=== PATIENT | female | born 1940 | race Caucasian/White ===

== ENCOUNTER 2017-01-30 18:53 | Emergency (ER) | payer MEDICARE, MEDICAID ==
[~2017-01-30] VITALS: Ht 154.9 cm; Wt 54.3 kg
[~2017-01-30 18:53] MED LIST: ANAS1TAB PO; FLUO10CA13 PO; LISI-170 PO; TIZA2CAP PO
[2017-01-30] MEDS ORDERED: ONDANSETRON 2MG/ML, 2ML IVPush ONE (19:30)
[2017-01-30] MEDS ORDERED: SODIUM CHLORIDE FLUSH 10ML SYR IVF ONE (19:30)
[2017-01-30] MEDS ORDERED: SODIUM CHLORIDE 0.9% 1,000ML IVBOLUS ONE (19:30)
[2017-01-30] MEDS ORDERED: MORPHINE SULFATE 4 MG/ML, 1ML IVPush PRN (19:30)
[2017-01-30] MEDS ORDERED: ONDANSETRON 2MG/ML, 2ML ONE (20:11)
[2017-01-30] MEDS ORDERED: MORPHINE SULFATE 4 MG/ML, 1ML ONE (20:11)
[2017-01-30 21:24] LABS: ASPARTATE AMINO TRANSFERASE 13 U/L (15-37); BLOOD UREA NITROGEN 14 mg/dL (7-18)
[2017-01-30] MEDS ORDERED: OMNIPAQUE 350 MG/ML, 100ML BOTTLE ONE (21:45)
[2017-01-30 22:30] VITALS: BP 107/49
== END 2017-01-30 23:01 | disposition home or self-care (01) ==
LOC: ED 19:42
DX: K57.30 Diverticulosis of large intestine without perforation or abscess without bleeding (principal); R10.31 Right lower quadrant pain; R10.32 Left lower quadrant pain; Z90.49 Acquired absence of other specified parts of digestive tract; Z85.3 Personal history of malignant neoplasm of breast; Z88.0 Allergy status to penicillin; Z95.0 Presence of cardiac pacemaker
CPT/HCPCS: 36415; 74020; 74177; 80053; 81001; 83690; 85025; 87086; 93005; 96361; 96374; 96375; 99285; J2405; J7030; Q9967

== ENCOUNTER → 2018-03-21 | Outpatient (CLI) | payer MEDICARE, MEDICAID ==
[2018-03-21 10:06] LABS: ALBUMIN 3.1 g/dL (3.4-5.0); ANION GAP 7 mmol/L (5-15); CALCIUM 8.7 mg/dL (8.5-10.1); CHLORIDE 112 mmol/L (98-107)
[2018-03-21 10:17] LABS: ALANINE AMINOTRANSFERASE 14 U/L (12-78); ALKALINE PHOSPHATASE 74 U/L (45-117); BILIRUBIN,TOTAL 0.3 mg/dL (0.2-1.0); CHOLESTEROL, TOTAL 194 mg/dL (140-239); CREATININE 0.83 mg/dL (0.55-1.02); HDL CHOL % 25 % (28-40); HDL CHOLESTEROL (DIRECT) 49 mg/dL (40-60); LDL CHOLESTEROL,CALCULATED 116 mg/dL (54-169); LDL/HDL RATIO 2.4 (0.5-3.0); TOTAL PROTEIN 6.7 g/dL (6.4-8.2); TRIGLYCERIDES 144 mg/dL (50-200); VLDL CHOLESTEROL 29 mg/dL (0-25)
== END | disposition home or self-care (01) ==
LOC: LAB 09:32
PROVIDERS: ATTEND Internal Medicine Cardiovascular Disease
DX: I10 Essential (primary) hypertension (principal); E78.5 Hyperlipidemia, unspecified; R00.2 Palpitations
CPT/HCPCS: 36415; 80053; 80061; 84443

== ENCOUNTER → 2018-06-12 | Outpatient (CLI) | payer MEDICARE, MEDICAID | END | disposition home or self-care (01) | LOC: CFH 09:33 | PROVIDERS: ATTEND Family Medicine | DX: Z12.31 Encounter for screening mammogram for malignant neoplasm of breast (principal); Z13.820 Encounter for screening for osteoporosis; M85.88 Other specified disorders of bone density and structure, other site; Z85.3 Personal history of malignant neoplasm of breast | CPT/HCPCS: 77080; 77067 ==

== ENCOUNTER 2018-10-10 00:14 | Inpatient (IN) | payer MEDICARE, MEDICAID ==
[~2018-10-10] VITALS: Ht 154.9 cm; Wt 50.9 kg
[2018-10-10] MEDS ORDERED: MORPHINE SULFATE 4 MG/ML, 1ML ONE (00:50)
[2018-10-10 00:56] LABS: MEAN CORPUSCULAR HEMOGLOBIN 33.2 pg (27.0-34.8); MEAN CORPUSCULAR HGB CONC 33.6 g/dL (32.4-35.8); MEAN CORPUSCULAR VOLUME 98.9 fL (80-100); MEAN PLATELET VOLUME 7.1 fL (7.4-10.4); PLATELET COUNT 317 x10^3/uL (130-400); RED BLOOD COUNT 3.89 x10^6/uL (3.82-5.3)
[2018-10-10] MEDS ORDERED: SODIUM CHLORIDE FLUSH 10ML SYR IVF ONE (01:00)
[2018-10-10] MEDS ORDERED: MORPHINE SULFATE 4 MG/ML, 1ML IVPush PRN (01:00)
[2018-10-10 01:02] LABS: INTERNATIONAL NORMALIZED RATIO 0.99 (0.93-1.1); PROTHROMBIN TIME 10.5 Seconds (9.6-11.5)
[2018-10-10 01:03] LABS: ALANINE AMINOTRANSFERASE 13 U/L (12-78); ALBUMIN 3.4 g/dL (3.4-5.0); ANION GAP 11 mmol/L (5-15); CALCIUM 8.8 mg/dL (8.5-10.1); CHLORIDE 109 mmol/L (98-107); CREATININE 0.95 mg/dL (0.55-1.02)
[2018-10-10 01:08] LABS: ALKALINE PHOSPHATASE 89 U/L (45-117); BILIRUBIN,TOTAL 0.6 mg/dL (0.2-1.0); TOTAL PROTEIN 7.3 g/dL (6.4-8.2); TROPONIN I < 0.015 ng/mL (0.000-0.045)
[2018-10-10 01:21] LABS: BASOPHILS # (AUTO) 0.04 x10^3/uL (0-0.1); BASOPHILS % (AUTO) 0 % (0-1); EOSINOPHILS # (AUTO) 0.03 x10^3/uL (0-0.4); EOSINOPHILS % (AUTO) 0 % (1-7); LYMPHOCYTES # (AUTO) 1.45 x10^3/uL (1-3.4); LYMPHOCYTES % (AUTO) 11 % (22-44); MD SCAN; MONOCYTES # (AUTO) 1.67 x10^3/uL (0.2-0.8); MONOCYTES % (AUTO) 13 % (2-9); NEUTROPHILS # (AUTO) 9.59 x10^3/uL (1.8-6.8); NEUTROPHILS % (AUTO) 75 % (42-75)
[2018-10-10 03:41] VITALS: BP 101/61
[2018-10-10] MEDS ORDERED: BACLOFEN 10 MG TABLET PO PRN (04:00)
[2018-10-10] MEDS ORDERED: ACETAMINOPHEN 325 MG TABLET PO PRN (04:00)
[2018-10-10] MEDS ORDERED: KETOROLAC 30 MG/1 ML IVPush SCH (04:15)
[2018-10-10] MEDS: HEPARIN 5,000 UNITS/ML, 1ML SQ SCH ×3 (04:44→20:41)
[2018-10-10] MEDS: morphine SULFATE 10 MG/ML, 1ML IVPush PRN ×3 (05:39→14:51)
[2018-10-10] MEDS: FAMOTIDINE 20 MG TABLET PO SCH ×2 (07:53→20:44)
[2018-10-10] MEDS: ANASTROZOLE 1 MG TABLET HOMEMEDPO SCH (07:53)
[2018-10-10] MEDS: FLUOXETINE 10 MG CAP PO SCH (07:53)
[2018-10-10 07:55] VITALS: BP 94/57
[2018-10-10] MEDS ORDERED: LIDODERM 5% PATCH TD ONE ×2 (10:30→14:48)
[2018-10-10 11:46] LABS: BASOPHILS # (AUTO) 0.07 x10^3/uL (0-0.1); BASOPHILS % (AUTO) 1 % (0-1); EOSINOPHILS # (AUTO) 0.03 x10^3/uL (0-0.4); EOSINOPHILS % (AUTO) 0 % (1-7); LYMPHOCYTES # (AUTO) 0.74 x10^3/uL (1-3.4); LYMPHOCYTES % (AUTO) 8 % (22-44); MD NO; MEAN CORPUSCULAR HEMOGLOBIN 33.6 pg (27.0-34.8); MEAN CORPUSCULAR HGB CONC 33.8 g/dL (32.4-35.8); MEAN CORPUSCULAR VOLUME 99.5 fL (80-100); MEAN PLATELET VOLUME 6.8 fL (7.4-10.4); MONOCYTES # (AUTO) 1.06 x10^3/uL (0.2-0.8); MONOCYTES % (AUTO) 12 % (2-9); NEUTROPHILS # (AUTO) 7.16 x10^3/uL (1.8-6.8); NEUTROPHILS % (AUTO) 79 % (42-75); PLATELET COUNT 285 x10^3/uL (130-400); RED BLOOD COUNT 3.32 x10^6/uL (3.82-5.3); RED CELL DISTRIBUTION WIDTH 14.2 % (9.6-15.2)
[2018-10-10] MEDS ORDERED: LIDOCAINE 1%, 10ML INFIL ONE (12:30)
[2018-10-10 12:52] LABS: HCT (SEDRATE) 33.1 % (34.6-47.8)
[2018-10-10 14:00] VITALS: BP 108/67
[2018-10-10] MEDS: CYCLOBENZAPRINE 10 MG TABLET PO SCH ×3 (14:52→20:41)
[2018-10-10] MEDS: PANTOPROZOLE 40MG TABLET PO SCH (14:52)
[2018-10-10 15:22] LABS: MICROSCOPIC AUTO
[2018-10-10 15:23] LABS: CULTURE INDICATED? YES
[2018-10-10 17:27] LABS: C-REACTIVE PROTEIN, QUANT 7.3 mg/dL (0.02-0.49); THYROID STIMULATING HORMONE 3.56 mIU/L (0.358-3.740)
[2018-10-10 19:25] VITALS: BP 94/54
[2018-10-11 04:00] VITALS: BP 118/71
[2018-10-11] MEDS: HEPARIN 5,000 UNITS/ML, 1ML SQ SCH ×4 (04:00→20:55)
[2018-10-11] MEDS: morphine SULFATE 10 MG/ML, 1ML IVPush PRN ×2 (04:49→09:47)
[2018-10-11] MEDS ORDERED: OXYcodone/APAP 10/325MG TABLET PO PRN (06:30)
[2018-10-11 07:05] VITALS: BP 127/67
[2018-10-11] MEDS: FLUOXETINE 10 MG CAP PO SCH (08:26)
[2018-10-11] MEDS: CYCLOBENZAPRINE 10 MG TABLET PO SCH ×3 (08:26→20:51)
[2018-10-11] MEDS: ANASTROZOLE 1 MG TABLET HOMEMEDPO SCH (08:27)
[2018-10-11] MEDS: FAMOTIDINE 20 MG TABLET PO SCH ×2 (08:27→20:50)
[2018-10-11] MEDS: PANTOPROZOLE 40MG TABLET PO SCH (12:28)
[2018-10-11] MEDS ORDERED: OXYcodone/APAP 5/325MG TABLET PO PRN (13:30)
[2018-10-11 13:50] VITALS: BP 97/54
[2018-10-11] MEDS ORDERED: CEFTRIAXONE PMX 1GM/50ML 50 ML IV SCH (18:00)
[2018-10-11] MEDS ORDERED: HALOPERIDOL 5 MG/ML IV ONE (18:00)
[2018-10-11 18:25] VITALS: BP 123/67
[2018-10-11 19:51] VITALS: BP 119/73
[2018-10-12 03:25] VITALS: BP 109/58
[2018-10-12 04:57] LABS: BASOPHILS # (AUTO) 0.01 x10^3/uL (0-0.1); BASOPHILS % (AUTO) 0 % (0-1); EOSINOPHILS # (AUTO) 0.02 x10^3/uL (0-0.4); EOSINOPHILS % (AUTO) 0 % (1-7); LYMPHOCYTES # (AUTO) 0.97 x10^3/uL (1-3.4); LYMPHOCYTES % (AUTO) 10 % (22-44); MD NO; MEAN CORPUSCULAR HEMOGLOBIN 33.6 pg (27.0-34.8); MEAN CORPUSCULAR HGB CONC 33.7 g/dL (32.4-35.8); MEAN CORPUSCULAR VOLUME 99.6 fL (80-100); MEAN PLATELET VOLUME 7.4 fL (7.4-10.4); MONOCYTES # (AUTO) 0.91 x10^3/uL (0.2-0.8); MONOCYTES % (AUTO) 9 % (2-9); NEUTROPHILS # (AUTO) 7.85 x10^3/uL (1.8-6.8); NEUTROPHILS % (AUTO) 80 % (42-75); PLATELET COUNT 265 x10^3/uL (130-400); RED BLOOD COUNT 3.07 x10^6/uL (3.82-5.3); RED CELL DISTRIBUTION WIDTH 13.9 % (9.6-15.2)
[2018-10-12] MEDS: HEPARIN 5,000 UNITS/ML, 1ML SQ SCH ×2 (04:58→13:00)
[2018-10-12] MEDS ORDERED: CALCIUM CARBONATE 500 MG TABLET PO SCH (09:00)
[2018-10-12] MEDS ORDERED: CHOLECALCIFEROL 400 UNITS TABLET PO SCH (09:00)
[2018-10-12] MEDS: CYCLOBENZAPRINE 10 MG TABLET PO SCH (09:49)
[2018-10-12] MEDS: FAMOTIDINE 20 MG TABLET PO SCH (09:49)
[2018-10-12] MEDS: ANASTROZOLE 1 MG TABLET HOMEMEDPO SCH (10:04)
[2018-10-12] MEDS: FLUOXETINE 10 MG CAP PO SCH (10:17)
[2018-10-12 11:39] VITALS: BP 110/62
[2018-10-12] MEDS: PANTOPROZOLE 40MG TABLET PO SCH (11:54)
[2018-10-12] MEDS ORDERED: SULF1TAB24 PO (14:39)
[2018-10-12] MEDS ORDERED: PRED20TA PO (14:39)
[2018-10-12] MEDS ORDERED: CYCL-259 PO (15:08)
[2018-10-14 18:45] LABS: ANA SCREEN NEGATIVE (Negative)
== END 2018-10-12 16:24 | disposition home or self-care (01) | DRG 546 ==
LOC: ED 00:30 → EDIP 02:45 → 3NW 03:32
PROVIDERS: ADMIT Family Medicine; ATTEND Family Medicine
DX: M35.3 Polymyalgia rheumatica (principal); L03.90 Cellulitis, unspecified; M47.812 Spondylosis without myelopathy or radiculopathy, cervical region; F32.9 Major depressive disorder, single episode, unspecified; I89.0 Lymphedema, not elsewhere classified; R82.71 Bacteriuria; Z90.49 Acquired absence of other specified parts of digestive tract; Z90.10 Acquired absence of unspecified breast and nipple; Z88.0 Allergy status to penicillin; Z85.3 Personal history of malignant neoplasm of breast; Z88.1 Allergy status to other antibiotic agents; Z95.0 Presence of cardiac pacemaker; Z82.61 Family history of arthritis; Z79.899 Other long term (current) drug therapy
CPT/HCPCS: 36415; 70450; 71045; 72125; 80053; 81001; 84443; 84484; 85025; 85610; 85651; 85730; 86038; 86140; 86430; 87086; 93005; 96374; 99285; G0378; J0696; J1644; J1630; J2270; J7512

== ENCOUNTER 2020-05-25 17:53 | Emergency (ER) | payer MEDICARE, MEDICAID ==
[~2020-05-25] VITALS: Ht 152.4 cm; Wt 50.7 kg
[~2020-05-25 17:53] MED LIST changes: +CYCL-259 PO; +PRED20TA PO; +SULF1TAB24 PO
[2020-05-25] MEDS ORDERED: SODIUM CHLORIDE FLUSH 10ML SYR IVF ONE (18:30)
[2020-05-25 19:09] LABS: MICROSCOPIC INDICATED
[2020-05-25 19:17] LABS: BASOPHILS # (AUTO) 0.03 x10^3/uL (0-0.1); BASOPHILS % (AUTO) 0 % (0-1); EOSINOPHILS # (AUTO) 0.13 x10^3/uL (0-0.4); EOSINOPHILS % (AUTO) 2 % (1-7); LYMPHOCYTES # (AUTO) 1.11 x10^3/uL (1-3.4); LYMPHOCYTES % (AUTO) 13 % (22-44); MD NO; MEAN CORPUSCULAR HEMOGLOBIN 33.6 pg (27.0-34.8); MEAN CORPUSCULAR HGB CONC 33.5 g/dL (32.4-35.8); MEAN CORPUSCULAR VOLUME 100.3 fL (80-100); MONOCYTES # (AUTO) 0.75 x10^3/uL (0.2-0.8); MONOCYTES % (AUTO) 9 % (2-9); NEUTROPHILS # (AUTO) 6.68 x10^3/uL (1.8-6.8); NEUTROPHILS % (AUTO) 77 % (42-75); PLATELET COUNT 263 x10^3/uL (130-400); RED BLOOD COUNT 3.43 x10^6/uL (3.82-5.3); RED CELL DISTRIBUTION WIDTH 13.9 % (9.6-15.2)
[2020-05-25 19:25] LABS: ALANINE AMINOTRANSFERASE 13 U/L (12-78); ALBUMIN 3.1 g/dL (3.4-5.0); ANION GAP 6 mmol/L (5-15); CALCIUM 8.2 mg/dL (8.5-10.1); CHLORIDE 111 mmol/L (98-107); CREATININE 1.13 mg/dL (0.55-1.02)
[2020-05-25 19:27] LABS: ALKALINE PHOSPHATASE 66 U/L (45-117); BILIRUBIN,TOTAL 0.7 mg/dL (0.2-1.0); TOTAL PROTEIN 6.4 g/dL (6.4-8.2)
[2020-05-25] MEDS ORDERED: OMNIPAQUE 350 MG/ML, 100ML BOTTLE ONE (20:20)
[2020-05-25 21:21] VITALS: BP 131/82
--- NOTE | 2020-05-25 21:21 | NUR ---
Patient given discharge instructions and they have confirmed that they understand the instructions. Patient ambulatory with steady gait.
== END 2020-05-25 21:30 | disposition home or self-care (01) ==
LOC: ED 20:08
DX: K43.2 Incisional hernia without obstruction or gangrene (principal); K59.00 Constipation, unspecified; Z85.3 Personal history of malignant neoplasm of breast; Z95.0 Presence of cardiac pacemaker
CPT/HCPCS: 36415; 71045; 74177; 80053; 81001; 83690; 85025; 87086; 93005; 99285; Q9967

== ENCOUNTER 2020-12-22 15:39 | Emergency (ER) | payer MEDICARE, MEDICAID ==
[~2020-12-22] VITALS: Ht 152.4 cm; Wt 48.0 kg
[~2020-12-22 15:39] MED LIST changes: -CYCL-259 PO; +CYCL10TA2 PO
--- NOTE | 2020-12-22 15:58 | NUR ---
PATIENT AMBULATED TO BATHROOM WITH ASSISTANCE OF DAUGHTER.
--- NOTE | 2020-12-22 16:00 | NUR ---
LATE ENTRY DUE TO PATIENT CARE: PATIENT BIB EMS WITH CHIEF C/O FAILURE TO THRIVE. PER EMS PATIENT HAS NOT LEFT HOUSE THE LAST YEAR DUE TO COVID, PATIENT REFUSES TO EAT, INCREASED WEAKNESS, AND TOLD DAUGHTER TODAY SHE IS DYING. PATIENT A&OX2 PER EMS, 20 GAUGE IV STARTED LEFT FOREARM AND 250 mL NS GIVEN EN ROUTE, VSS EN ROUTE PER EMS. NADN, PATIENT CONNECTED TO ALL MONITORS, VSS, DAUGHTER AT BEDSIDE TRANSLATING, SIDE RAILS UP X2, CALL LIGHT WITHIN REACH.
[2020-12-22] MEDS ORDERED: DONE5TAB14 PO (16:19)
[2020-12-22] MEDS ORDERED: FLUO40CA2 PO (16:19)
[2020-12-22] MEDS ORDERED: CARV3.1212 PO ×2 (16:19)
[2020-12-22] MEDS ORDERED: LEVO50TA5 PO (16:19)
[2020-12-22] MEDS ORDERED: PANT40TA6 PO (16:19)
--- NOTE | 2020-12-22 16:58 | NUR ---
URINE SAMPLE COLLECTED AND SENT TO LAB.
[2020-12-22 17:09] LABS: BASOPHILS % (AUTO) 1 % (0-1); EOSINOPHILS % (AUTO) 0 % (1-7); LYMPHOCYTES % (AUTO) 19 % (22-44); MEAN CORPUSCULAR HEMOGLOBIN 32.8 pg (27.0-34.8); MEAN CORPUSCULAR HGB CONC 33.3 g/dL (32.4-35.8); MEAN PLATELET VOLUME 6.3 fL (7.4-10.4); MONOCYTES % (AUTO) 10 % (2-9); NEUTROPHILS % (AUTO) 69 % (42-75); PLATELET COUNT 348 x10^3/uL (130-400); RED BLOOD COUNT 3.96 x10^6/uL (3.82-5.3); RED CELL DISTRIBUTION WIDTH 14.9 % (9.6-15.2)
[2020-12-22 17:10] LABS: MD NO
--- NOTE | 2020-12-22 17:11 | NUR ---
PATIENT AMBULATED TO BATHROOM WITH STEADY GAIT.
[2020-12-22 17:17] LABS: ALANINE AMINOTRANSFERASE 20 U/L (12-78); ALBUMIN 3.4 g/dL (3.4-5.0); ANION GAP 6 mmol/L (5-15); CALCIUM 8.9 mg/dL (8.5-10.1); CHLORIDE 111 mmol/L (98-107); CREATININE 0.64 mg/dL (0.55-1.02)
[2020-12-22 17:17] LABS: MICROSCOPIC NOT IND
[2020-12-22 17:22] LABS: ALKALINE PHOSPHATASE 88 U/L (45-117); BILIRUBIN,TOTAL 0.7 mg/dL (0.2-1.0); TOTAL PROTEIN 6.6 g/dL (6.4-8.2); TROPONIN I < 0.015 ng/mL (0.000-0.045)
--- NOTE | 2020-12-22 18:19 | NUR ---
PATIENT TO CT.
--- NOTE | 2020-12-22 18:38 | NUR ---
BEDSIDE REPORT FROM KATHY MCMAHON, PT CARE TRANSFERRED AT THIS TIME. PT NAD, RESTING ON GURNEY, APPEARS COMFORTABLE, BED IN LOWEST, RAILS ENGAGED, CALL LIGHT ON LAP, WCTM. WAITING CT READ
--- NOTE | 2020-12-22 19:23 | NUR ---
PT RESTING GURROSY, NAD, APPEARS COMFORTABLE, BED IN LOWEST, RAILS ENGAGED, CALL LIGHT ON LAP, WCTM.
[2020-12-22 19:27] VITALS: BP 130/87
--- NOTE | 2020-12-22 20:00 | NUR ---
Patient/family given discharge instructions and they have confirmed that they understand the instructions. Patient ambulatory with steady gait. NAD, DENIES ADDITIONAL QUESTIONS OR NEEDS, NO PERSONAL BELONGINGS LEFT IN ROOM AFTER DC.
== END 2020-12-22 20:01 | disposition home or self-care (01) ==
LOC: ED 18:26
DX: R53.1 Weakness (principal); R11.2 Nausea with vomiting, unspecified; R42 Dizziness and giddiness; Z88.1 Allergy status to other antibiotic agents; Z95.0 Presence of cardiac pacemaker; Z85.3 Personal history of malignant neoplasm of breast; Z90.49 Acquired absence of other specified parts of digestive tract; Z90.10 Acquired absence of unspecified breast and nipple
CPT/HCPCS: 36415; 70450; 80053; 81003; 83690; 84443; 84484; 85025; 93005; 99285